=== PATIENT | male | born 1945 | race Caucasian/White ===

== ENCOUNTER → 2016-07-02 | Outpatient (CLI) | payer MEDICARE ==
[2016-07-02 08:51] LABS: ALT 37 U/L (21-72); AST 37 U/L (17-59); Cholesterol 118 mg/dL (<200); HDL Cholesterol 46 mg/dL (40-60); Triglycerides 49 mg/dL (<150)
== END | disposition home or self-care (01) ==
LOC: LABWHC1 07:41
PROVIDERS: ATTEND Internal Medicine Cardiovascular Disease
DX: E78.2 Mixed hyperlipidemia (principal)
CPT/HCPCS: 36415; 80061; 84450; 84460

== ENCOUNTER → 2019-09-21 | Outpatient (CLI) | payer MEDICARE ==
--- NOTE | 2019-09-22 08:15 | CT ---
EXAMINATION TYPE: CT urogram wo/w con DATE OF EXAM: 09/21/2019 COMPARISON: None HISTORY: Microhematuria and frequent urination. CT DLP: 2178 mGycm, Automated Exposure Control for Dose Reduction was Utilized. CONTRAST: CT scan of the abdomen and pelvis is performed with oral and without and with IV Contrast, patient in jected with 100ml mL of Isovue 300. FINDINGS: The patient is post median sternotomy. There are coronary artery calcifications present. At heromatous changes are present in the aortoiliac distribution LUNG BASES: No significant abnormality is appreciated. LIVER/GB: Multiple low dense foci are scattered within the liver most of which are subcentimeter in s ize likely representing cysts, gallbladder is unremarkable. PANCREAS: No significant abnormality is seen. SPLEEN: No significant abnormality is seen. ADRENALS: No significant abnormality is seen. KIDNEYS: There are parapelvic cysts noted within the kidneys causing mass effect on the renal collect ing system greater than on the right. There are also cortical cysts present bilaterally which are too small to characterize. Largest cyst on the right measures 8 mm at the upper pole, at the midpole teo roximately 10 mm with some probable peripheral calcification or dependent high attenuation and on the left at the midpole measuring 11 mm laterally. BOWEL: Extensive diverticular changes associated with the sigmoid colon. PROSTATE/SEMINAL VESICLES: Prostate is enlarged, there are associated calcifications present. LYMPH NODES: No greater than 1cm abdominal or pelvic lymph nodes are appreciated. OSSEOUS STRUCTURES: Degenerative disc changes, spinal curvature noted in the visualized spine OTHER the urinary bladder shows a focal outpouching posteriorly and to the left laterally consistent with Hutch diverticulum measuring 5.5 cm x 6 cm x 4.3 cm with some mass effect on the distal left ure ter. Some dependent high attenuation may represent some retained stones within the diverticulum. Urin bala bladder shows a thickened trabeculated wall. There is inferior impression on the urinary bladder wall likely due to the prostate. There is an oval calcification present laterally to the left which m ay be within the bladder wall measuring 2.4 cm in greatest dimension IMPRESSION: Bilateral parapelvic cysts. 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 Trabeculated urinary bladder wall suggest chronic bladder outlet obstruction, cannot exclude a mucosal lesion. There is prostatic enlargement. Indeterminate low dense foci associated with the kidneys and liver likely represent cysts, additional findings above with possible wall calcification at the midpole cyst on the right, follow-up suggeste leslie.
== END | disposition home or self-care (01) ==
LOC: RADCTMAIN 15:20
PROVIDERS: ATTEND Urology
DX: N28.1 Cyst of kidney, acquired (principal); N32.3 Diverticulum of bladder; N40.0 Benign prostatic hyperplasia without lower urinary tract symptoms
CPT/HCPCS: 82565; 84520; 74178; 36415; 74400; Q9967

== ENCOUNTER 2019-11-25 08:22 | Day surgery (SDC) | payer MEDICARE ==
[2019-11-23 13:46] VITALS: BMI 26.9
--- NOTE | 2019-11-25 00:16 | P.HPIHPCON ---
History of Present Illness H&P Date: 11/25/19 Chief Complaint: Bladder stone/BPH, Mr Martinez is 74 yo male with hx of recurrent UTI and LUTS. He underwent a CT Urogram/Cystoscopy which showed a 2.3X2.6 cm bladder stone, enlarged obstructive prostate and stones within a hutch diverticulum. I discussed with him the option of doing a Cystolithalopaxy and TURP to address his stones and obstructive symptoms/UTI. I also discussed the option of addressing his stones within the diverticulum. I discussed with him the risk of bleeding, infection and bladder injury. I also discussed the risk if urinary incontinence from TURP. Discussed with him the risk from anesthesia. He understood all risks and agreed to proceed with Cystolithalopaxy, TURP and possibile left ureteroscopy Consent for Procedure: I have explained the operation/procedure to the patient, including the risks, benefits, side effects, alternative therapies (including not receiving the proposed treatment or service), the likelihood of the patient achieving his/her goals, and potential recuperation problems for the procedure/sedation/analgesia, as well as any blood products, if indicated. I also explained to the patient the risks, benefits and side effects of the alternatives, as well as the risks related to not receiving the proposed procedure, care, treatment, or services. - Constitutional Constitutional: Denies chills, Denies fever - Cardiovascular Cardiovascular: Denies chest pain, Denies shortness of breath - Gastrointestinal Gastrointestinal: Denies abdominal pain, Denies diarrhea, Denies nausea, Denies vomiting Past Medical History Past Medical History: Myocardial Infarction ([place]), Prostate Disorder Additional Past Medical History / Comment(s): constipation, stone in bladder, enlarged prostate, Last Myocardial Infarction Date:: 12/2013 History of Any Multi-Drug Resistant Organisms: None Reported Past Surgical History: Coronary Bypass/CABG, Heart Catheterization With Stent, Tonsillectomy Additional Past Surgical History / Comment(s): facial(lip) surgery after injury, CABG 2013, total 4 cardiac stents, Past Anesthesia/Blood Transfusion Reactions: No Reported Reaction Date of Last Stent Placement:: 12/2013 Smoking Status: Never smoker - Past Family History Father Family Medical History: Myocardial Infarction ([place]) Son(s) Family Medical History: Cancer Medications and Allergies Home Medications Medication Instructions Recorded Confirmed Type Herb Lax 1 tab PO DAILY PRN 02/19/14 11/23/19 History Multivitamins, Thera [Multivitamin 1 each PO DAILY 02/19/14 11/23/19 History (formulary)] Nitroglycerin Sl Tabs [Nitrostat] 0.4 mg SUBLINGUAL DIRECTED PRN 02/19/14 11/23/19 History Atorvastatin [Lipitor] 80 mg PO HS #30 tab 02/28/14 11/23/19 Rx Aspirin [Adult Low Dose Aspirin EC] 81 mg PO DAILY 11/23/19 11/23/19 History Carvedilol [Coreg] 12.5 mg PO BID 11/23/19 11/23/19 History lisinopriL [Zestril] 2.5 mg PO W/SUPPER 11/23/19 11/23/19 History Allergies Allergy/AdvReac Type Severity Reaction Status Date / Time No Known Allergies Allergy Verified 11/23/19 13:32 Surgical - Exam - General well developed, well nourished, no distress - Eyes PERRL, normal ocular movement - Respiratory normal expansion, normal respiratory effort - Psychiatric oriented to time, oriented to person, oriented to place Assessment and Plan Plan: OR for Cystolithalopaxy, TURP and possibile left ureteroscopy
[~2019-11-25 08:22] MED LIST: DEXAMETHASONE SOD PHOSPHATE 10 MG/ML 1 ML VIAL IV ONE; GENTAMICIN 120 MG in SODIUM CHLORIDE 0.9% 100 ML IVPB ONE; LACTATED RINGERS 1,000 ML IV SCH; LIDOCAINE 1% (10MG/ML) FOR IV START INTRADERMA PRN; MIDAZOLAM 2 MG/2 ML VIAL IV PRN; fentaNYL (PF) 50 MCG/ML 2 ML AMP IV PRN
--- NOTE | 2019-11-25 08:39 | XR ---
EXAMINATION TYPE: XR KUB DATE OF EXAM: 11/25/2019 COMPARISON: NONE HISTORY: Preop TECHNIQUE: One view abdominal series FINDINGS: The osseous structures are intact. The bowel gas pattern is nonspecific. Large calcification the pel vis measuring 2.9 cm. Hypertrophic and degenerative change of the spine. Arthropathy of the hips.. IMPRESSION: 1. Nonspecific abdomen. Large bladder calculus noted.
[2019-11-25] MEDS ORDERED: ONDANSETRON 4 MG/2 ML VIAL ONE (09:24)
[2019-11-25] MEDS ORDERED: fentaNYL (PF) 50 MCG/ML 2 ML AMP ONE (10:20)
[2019-11-25] MEDS ORDERED: LIDOCAINE 1% INJ 10MG/ML (20 ML MDV) ONE (10:20)
[2019-11-25] MEDS ORDERED: PROPOFOL 10 MG/ML 20 ML VIAL IV ONE (10:20)
[2019-11-25] MEDS ORDERED: MIDAZOLAM 2 MG/2 ML VIAL ONE (10:20)
[2019-11-25] MEDS ORDERED: SUCCINYLCHOLINE CHLORIDE 100 MG/5 ML SYR IV ONE (10:20)
[2019-11-25] MEDS ORDERED: ROCURONIUM BROMIDE 10 MG/ML 5 ML VIAL IV ONE (10:20)
[2019-11-25] MEDS ORDERED: IOHEXOL 350 MG/ML 50 ML in EMPTY BAG 1 BAG IRRIGATION ONE (10:52)
--- NOTE | 2019-11-25 11:08 | FL ---
EXAMINATION TYPE: FL urography retrograde DATE OF EXAM: 11/25/2019 COMPARISON: NONE HISTORY: Fluoroscopy time TECHNIQUE: Fluoroscopy. FINDINGS: Fluoroscopic of 19 seconds was provided. IMPRESSION: As Above.
[2019-11-25] MEDS ORDERED: LACTATED RINGERS 1,000 ML IV ONE (12:25)
--- NOTE | 2019-11-25 13:31 | P.OP ---
Date of Procedure: 11/25/19 Preoperative Diagnosis: Bladder stone, BPH, bladder diverticulum Postoperative Diagnosis: Same Procedure(s) Performed: Cystoscopy, cystolitholapaxy (>2.5 cm stone), TURP, left retrograde pyelogram Implants: None Anesthesia: CAROLINAA Surgeon: Kal Martinez Estimated Blood Loss (ml): 50 Pathology: other (Bladder stone, prostate chips) Condition: stable Disposition: PACU Indications for Procedure: Mr Martinez is 74 yo male with hx of recurrent UTI and LUTS. He underwent a CT Urogram/Cystoscopy which showed a 2.3X2.6 cm bladder stone, enlarged obstructive prostate and stones within a hutch diverticulum. I discussed with him the option of doing a Cystolithalopaxy and TURP to address his stones and obstructive symptoms/UTI. I also discussed the option of addressing his stones within the diverticulum. I discussed with him the risk of bleeding, infection and bladder injury. I also discussed the risk if urinary incontinence from TURP. Discussed with him the risk from anesthesia. He understood all risks and agreed to proceed with Cystolithalopaxy, TURP and possibile left ureteroscopy Operative Findings: Large bladder stone, obstructive prostate with a significantly enlarged median lobe, multiple small stones within a diverticulum medial to the left ureteral orifice. Left retrograde pyelogram demonstrated kinking of the ureter secondary to the diverticulum, but no hydronephrosis Description of Procedure: Patient was brought to the operating room, general anesthesia was induced. He was prepped and draped in sterile fashion a placement dorsal lithotomy position. Cystoscopy with a 21 sheath was inserted per urethra, cystoscopy was performed which showed trilobar hyperplasia with significant a large median lobe. Additionally there was a large bladder stones. Attention was then carried to the left ureteral orifice, medial to the left ureteral orifice a Hutch diverticulum was visualized. Cystoscopy was performed of the diverticulum which showed no abnormality, but of note patient had multiple small stones that were irrigated out. Attention was then carried to the left ureteral orifice, clear urine reflux was visualized. At this time the left ureteral orifice was intubated with 6-Micronesian open-ended catheter, retrograde pyelogram was performed which showed kinking of the distal ureter but no hydronephrosis. The kinking was secondary to the diverticulum. At this time attention was carried to the bladder stone, the bladder stone was broken up using in the holmium laser. Of note the stone was very dense. Repeat cystoscopy showed no sizable fragments. The fragments were irrigated out. At this time attention was then carried to the TURP. The cystoscope was withdrawn and a resectoscope fitted with a 25 sheath was inserted. Patient had meatal stenosis, which was dilated using the male sound, Using the resectoscope prostate was resected down to the surgical capsule. Initially the median lobe was resected down to the surgical capsule followed by the bilateral lateral lobes. Of note some residual apical tissue was was left behind bilaterally, but the prostate fossa was open. Hemostasis was achieved using cautery. Repeats cystoscopy showed no evidence of bleeding. The prostate chips were removed using the [employer] evacuator. Repeat cystoscopy demonstrated no fragments or prostate chips. At this time the resectoscope was removed and a 22-Micronesian hematuria catheter was inserted. The catheter was irrigated with return of clear urine. 40 mL was left in the balloon. The patient tolerated the procedure well and significant PACU in stable condition
[2019-11-25 13:42] VITALS: TEMP 97
[2019-11-25 13:49] VITALS: RESP 16
[2019-11-25 14:54] VITALS: BP 142/73; PULSE 58
== END 2019-11-25 15:39 | disposition home or self-care (01) ==
LOC: OR 08:22
PROVIDERS: ATTEND Urology
DX: N40.1 Benign prostatic hyperplasia with lower urinary tract symptoms (principal); N13.8 Other obstructive and reflux uropathy; N21.0 Calculus in bladder; N32.3 Diverticulum of bladder; I10 Essential (primary) hypertension; I25.10 Atherosclerotic heart disease of native coronary artery without angina pectoris; E78.5 Hyperlipidemia, unspecified; H91.90 Unspecified hearing loss, unspecified ear; I25.2 Old myocardial infarction; Z95.1 Presence of aortocoronary bypass graft; Z95.5 Presence of coronary angioplasty implant and graft; Z90.89 Acquired absence of other organs; Z79.82 Long term (current) use of aspirin; Z79.02 Long term (current) use of antithrombotics/antiplatelets; Z79.899 Other long term (current) drug therapy; Z87.440 Personal history of urinary (tract) infections; Z82.49 Family history of ischemic heart disease and other diseases of the circulatory system; Z80.9 Family history of malignant neoplasm, unspecified
CPT/HCPCS: 82365; 74420; 74018; 52318; 52601; C1758; J2250; J1100; J0690; J2405; J2001; J3010; J1580; J0330; J2704; Q9967; 88305

== ENCOUNTER → 2021-08-22 | Outpatient (CLI) | payer MEDICARE ==
[2021-08-22 15:57] LABS: BUN/Creat Ratio 17.78 Ratio (12.00-20.00); Blood Urea Nitrogen 17.5 mg/dL (9.0-27.0); Calcium 9.4 mg/dL (8.7-10.3); Carbon Dioxide 28.7 mmol/L (20.0-27.5); Non-African American GFR(CKD) 74.2 (60.0-200.0)
== END | disposition home or self-care (01) ==
LOC: LABWHC1 08:46
PROVIDERS: ATTEND Internal Medicine Cardiovascular Disease
DX: I25.5 Ischemic cardiomyopathy (principal)
CPT/HCPCS: 36415; 80048; 84443

== ENCOUNTER → 2021-09-11 | Outpatient (CLI) | payer MEDICARE ==
[2021-09-11 10:54] LABS: INR 0.98 (0.90-1.11); Prothrombin Time 10.8 sec (9.9-11.9)
[2021-09-11 10:56] LABS: HCT 44.3 % (39.6-50.0); MCH 31.7 pg (27.0-32.0); MCHC 31.6 g/dL (32.0-37.0); MCV 100.2 fL (80.0-97.0); Mean Platelet Volume 9.7 fL (9.5-12.2); NRBC Per 100 WBC 0 /100 WBCS (0.0-0.0); Platelet Count 340 X 10*3/uL (140-440); RBC 4.42 X 10*6/uL (4.40-5.60); RDW 13.2 % (11.5-14.5); WBC 7.72 X 10*3/uL (4.50-10.00)
[2021-09-11 11:08] LABS: African American GFR (CKD) 87.5 (60.0-200.0); Anion Gap 8.3 mmol/L (10.00-18.00); Blood Urea Nitrogen 16.3 mg/dL (9.0-27.0); Carbon Dioxide 28.2 mmol/L (20.0-27.5); Non-African American GFR(CKD) 75.5 (60.0-200.0); Potassium 4.3 mmol/L (3.5-5.5)
== END | disposition home or self-care (01) ==
LOC: LABPAT 08:02
PROVIDERS: ATTEND Internal Medicine Clinical Cardiac Electrophysiology
DX: Z01.812 Encounter for preprocedural laboratory examination (principal); I25.5 Ischemic cardiomyopathy; I25.810 Atherosclerosis of coronary artery bypass graft(s) without angina pectoris
CPT/HCPCS: 36415; 80051; 82565; 84520; 85027; 85610

== ENCOUNTER → 2021-09-18 | Day surgery (SDC) | payer MEDICARE ==
[~2021-09-18] MED LIST changes: -DEXAMETHASONE SOD PHOSPHATE 10 MG/ML 1 ML VIAL IV ONE; -GENTAMICIN 120 MG in SODIUM CHLORIDE 0.9% 100 ML IVPB ONE; -LIDOCAINE 1% (10MG/ML) FOR IV START INTRADERMA PRN; -MIDAZOLAM 2 MG/2 ML VIAL IV PRN; +SODIUM CHLORIDE 0.9% 1,000 ML IV SCH; +ceFAZolin 1 GM in SODIUM CHLORIDE 0.9% IRRIG BTL 250 ML IRRIGATION PRN; -fentaNYL (PF) 50 MCG/ML 2 ML AMP IV PRN
[2021-09-18 13:36] VITALS: BP 138/75; PULSE 60; RESP 16; TEMP 98
== END ==
LOC: CATHEP 12:20
PROVIDERS: ATTEND Internal Medicine Clinical Cardiac Electrophysiology
DX: I25.5 Ischemic cardiomyopathy (principal); Z53.8 Procedure and treatment not carried out for other reasons; Z20.822 Contact with and (suspected) exposure to COVID-19; I25.810 Atherosclerosis of coronary artery bypass graft(s) without angina pectoris; I49.5 Sick sinus syndrome; I11.0 Hypertensive heart disease with heart failure; I50.20 Unspecified systolic (congestive) heart failure; I25.2 Old myocardial infarction; E78.5 Hyperlipidemia, unspecified; Z79.82 Long term (current) use of aspirin; Z79.899 Other long term (current) drug therapy; Z95.810 Presence of automatic (implantable) cardiac defibrillator; Z95.5 Presence of coronary angioplasty implant and graft; Z82.49 Family history of ischemic heart disease and other diseases of the circulatory system; Z80.9 Family history of malignant neoplasm, unspecified
CPT/HCPCS: 87635

== ENCOUNTER 2021-09-21 09:52 | Day surgery (SDC) | payer MEDICARE ==
[~2021-09-21 09:52] MED LIST changes: -LACTATED RINGERS 1,000 ML IV SCH
[2021-09-21 10:21] VITALS: TEMP 97.6
[2021-09-21] MEDS ORDERED: fentaNYL (PF) 50 MCG/ML 2 ML AMP ONE (12:30)
[2021-09-21] MEDS ORDERED: PROPOFOL 10 MG/ML 20 ML VIAL IV ONE (12:30)
[2021-09-21] MEDS ORDERED: MIDAZOLAM 2 MG/2 ML VIAL ONE (12:30)
[2021-09-21] MEDS ORDERED: IOPAMIDOL-370 125ML BTL MISCELLANE ONE (12:45)
[2021-09-21] MEDS ORDERED: LIDOCAINE 1% INJ 10MG/ML (30 ML VIAL-PF) SQ ONE (13:18)
[2021-09-21] MEDS ORDERED: ACETAMINOPHEN TAB 325 MG TAB PO PRN (14:36)
[2021-09-21] MEDS ORDERED: ACETAMINOPHEN IV (For NPO) 1,000 MG in EMPTY BAG 1 BAG IVPB ONE (14:36)
--- NOTE | 2021-09-21 14:36 | P.EPPROC ---
- EP Procedure Note Electrophysiology Procedure Note: Diagnosis Cardiomyopathy, chronic, ischemic with CHF class II Bradycardia, on guideline directed medical treatment Old ID status post revascularization in the past Procedure: Dual-chamber ICD implantation for management of risk of sudden cardiac 4/bradycardia Result: Dual chamber ICD implantation, [employer] Atrial lead: Medtronic lead active fix, right atrial appendage, P waves 2 mV, pacing impedance 551 ohms and pacing threshold 0.75 V at 0.4 ms and 10V test negative RV ICD lead: Single coil active fix Medtronic lead in the RV septum. R waves 20 mV pacing impedance 513 ohms, pacing threshold 1 V at 0.4 ms, 10 V negative Procedure details: Patient was brought to the EP lab in a fasting state. Written informed consent was obtained prior to the procedure. Options, pros and cons, benefits and risks and complications discussed with patient in detail prior to the procedure (shared decision making). Importance of continuing medical treatment emphasized. Alternatives discussed. Patient would like to proceed with dual-chamber ICD implant. Left upper extremity venogram performed. 15 mL IV dye injected in the left arm. Patent axillary/subclavian vein The left pectoral area was prepped and draped as a protocol. IV antibiotics administered 1% lidocaine was used for local anesthesia. A 4 cm incision was made parallel to the deltopectoral groove, about 1.5 cm medial to it. The incision was carried down to the level of the pectoralis muscle and the subfascial pocket was made. Hemostasis was assured. The axillary vein access was obtained. Appropriately sized into to see sheaths were placed. ICD lead implanted in the right ventricle and screwed in. ICD lead tested for threshold, sensing, impedances and tested with high output pacing for diaphragmatic stimulation Atrial lead placed in the right atrial appendage and tested for threshold, sensing, impedance, and tested with high output pacing. Phrenic nerve stimulation Lead secured to the underlying transverse muscle after removing sheaths . Pocket irrigated with antibiotic solution Leads connected to the biventricular ICD generator. Wound closed in 3 layers and dressed per protocol Dual ICD interrogated and programmed. Appropriate pacing parameters, antitachycardia therapies with antitachycardia pacing cardioversion defibrillations programmed. Patient tolerated the procedure well without any acute complications. See scanned device report in EMR for lead details, [employer] MRI XT/ DF4
[2021-09-21 15:00] VITALS: RESP 16
[2021-09-21 15:11] VITALS: BP 162/76; PULSE 54
--- NOTE | 2021-09-21 16:36 | XR ---
EXAMINATION TYPE: XR chest 1V portable DATE OF EXAM: 09/21/2021 COMPARISON: 02/27/2014 INDICATION: Lead placement check TECHNIQUE: Single frontal view of the chest is obtained. FINDINGS: The heart size is normal. The pulmonary vasculature is normal. The lungs are clear. No pneumothorax is evident. Pacemaker has been placed. Leads have a typical orientation. Sternotomy w ires are in the midline. IMPRESSION: 1. No pneumothorax post pacemaker placement.
== END 2021-09-21 18:23 | disposition home or self-care (01) ==
LOC: CATHEP 09:52 → 6NMEDSUR 14:54 → CATHEP 18:23
PROVIDERS: ATTEND Internal Medicine Clinical Cardiac Electrophysiology
DX: I25.5 Ischemic cardiomyopathy (principal); I25.810 Atherosclerosis of coronary artery bypass graft(s) without angina pectoris; I49.5 Sick sinus syndrome; I11.0 Hypertensive heart disease with heart failure; I50.9 Heart failure, unspecified; E78.5 Hyperlipidemia, unspecified; Z95.5 Presence of coronary angioplasty implant and graft; I34.0 Nonrheumatic mitral (valve) insufficiency; I25.2 Old myocardial infarction; Z79.82 Long term (current) use of aspirin; Z79.899 Other long term (current) drug therapy; Z82.49 Family history of ischemic heart disease and other diseases of the circulatory system; Z80.9 Family history of malignant neoplasm, unspecified
CPT/HCPCS: 33249; 71045; C1769 ×2; C1892 ×2; C1898; C1895; C1721; J2250; J0690; J2001; J3010; J2704; Q9967

== ENCOUNTER → 2021-11-14 | Outpatient (CLI) | payer MEDICARE ==
[2021-11-14 15:27] LABS: African American GFR (CKD) 83.8 (60.0-200.0); Anion Gap 9.6 mmol/L (10.00-18.00); Blood Urea Nitrogen 14.4 mg/dL (9.0-27.0); Carbon Dioxide 27.4 mmol/L (20.0-27.5); Non-African American GFR(CKD) 72.3 (60.0-200.0)
[2021-11-14 15:37] LABS: HCT 41.2 % (39.6-50.0); HGB 13.7 g/dL (13.0-17.0); MCH 33.3 pg (27.0-32.0); MCHC 33.3 g/dL (32.0-37.0); Mean Platelet Volume 10.9 fL (9.5-12.2); NRBC Per 100 WBC 0 /100 WBCS (0.0-0.0); Platelet Count 198 X 10*3/uL (140-440); RBC 4.12 X 10*6/uL (4.40-5.60); WBC 7.47 X 10*3/uL (4.50-10.00)
== END | disposition home or self-care (01) ==
LOC: LABPAT 09:45
PROVIDERS: ATTEND Internal Medicine Clinical Cardiac Electrophysiology
DX: Z01.812 Encounter for preprocedural laboratory examination (principal); I25.2 Old myocardial infarction; I25.810 Atherosclerosis of coronary artery bypass graft(s) without angina pectoris; I49.5 Sick sinus syndrome
CPT/HCPCS: 80051; 82565; 84520; 85027